=== PATIENT | female | born 1985 | race Caucasian/White ===

== ENCOUNTER → 2023-10-31 08:00 | Outpatient (REF) | payer BC, SELFPAY | LOC: PNTC 08:00 | PROVIDERS: ATTENDING PHYSICIAN Obstetrics & Gynecology | DX: Z36.0 Encounter for antenatal screening for chromosomal anomalies (principal); Z36.82 Encounter for antenatal screening for nuchal translucency | CPT/HCPCS: 76801; 76813 ==

== ENCOUNTER 2024-05-01 11:02 | Observation (INO) | payer BC, SELFPAY ==
[2024-05-01 11:09] VITALS: BP 132/72; BMI 28.4
[2024-05-01 11:26] LABS: Hematocrit 31.1 % (37.0-47.0); Hemoglobin 10.3 g/dL (12.0-16.0); Mean Corp Hgb Conc. 33.1 g/dL (33.0-37.0); Mean Corpuscular Hgb 26.8 pg (27.0-31.0); Mean Platelet Volume 10.3 fL (7.4-10.4); Platelet Count 260 10^3/uL (130-400); Red Blood Cell Count 3.84 10^6/uL (4.20-5.40); Red Cell Dist. Width 14.3 % (11.5-14.5); White Blood Cell Count 8.1 10^3/uL (4.8-10.8)
[2024-05-01 11:36] LABS: ALT (SGPT) 18 U/L (0-35); AST (SGOT) 33 U/L (14-36); Albumin 3.5 g/dl (3.5-5.0); Alkaline Phosphatase 229 U/L (38-126); Blood Urea Nitrogen 8 mg/dl (7-17); Calcium 9.2 mg/dl (8.4-10.2); Carbon Dioxide 19 mmol/L (22-30); Chloride 105 mmol/L (98-107); Estimated Creatinine Clearance > 125 ml/min; Glucose 75 mg/dl (70-99); Potassium 4.1 mmol/L (3.5-5.1); Sodium 135 mmol/L (135-145); Total Bilirubin 0.6 mg/dl (0.2-1.3); Total Protein 6.1 g/dl (6.3-8.2); eGFR > 60.00
[2024-05-01 11:45] LABS: Protein/creatinine Ratio 0.2; Urine Protein 13 mg/dl
== END 2024-05-01 13:00 | disposition home or self-care (01) ==
LOC: LDRP 11:02
PROVIDERS: ADMITTING PHYSICIAN Obstetrics & Gynecology
DX: O13.3 Gestational [pregnancy-induced] hypertension without significant proteinuria, third trimester (principal); Z3A.38 38 weeks gestation of pregnancy; Z88.2 Allergy status to sulfonamides
CPT/HCPCS: 36415; 80053; 82570; 84156; 85027; 86850; 86900; 86901; G0378

== ENCOUNTER 2024-05-01 19:29 | Inpatient (IN) | payer BC, SELFPAY ==
[2024-05-01 19:35] VITALS: BMI 28.4
[2024-05-01 19:39] VITALS: BP 139/70
[2024-05-01] MEDS: CYTOTEC 25 MICROGRAM VAG (20:18)
[2024-05-01] MEDS: LR 1000 IV (21:08)
[2024-05-02] MEDS: CYTOTEC 50 MICROGRAM PO (01:03)
[2024-05-02] MEDS: BRETHINE 250 MCG SC (02:33)
[2024-05-02] MEDS: LR 1000 IV ×2 (04:45→08:57)
[2024-05-02] MEDS: SUBLIMAZE 100 MCG EPIDURAL (04:54)
[2024-05-02] MEDS: FENTANYL/BUPIVACAINE 100 EPIDURAL (04:54)
[2024-05-02] MEDS: PENICILLIN 110 UNITS IV (05:18)
[2024-05-02] MEDS: CYTOTEC PO ×2 (06:51→11:23)
[2024-05-02] MEDS: PITOCIN 30 UNITS/NSS 500 ML IV (07:20)
[2024-05-02] MEDS: PENICILLIN 55 UNITS IV (08:57)
[2024-05-02] MEDS: MOTRIN 600 MG PO (20:07)
[2024-05-03] MEDS: MOTRIN 600 MG PO ×3 (04:47→20:31)
[2024-05-03 04:51] LABS: Hematocrit 27.1 % (37.0-47.0); Hemoglobin 9.1 g/dL (12.0-16.0)
[2024-05-03] MEDS: PRENATAL PLUS 1 TABLET PO (07:44)
[2024-05-03] MEDS: FEOSOL 325 MG PO (14:48)
[2024-05-04] MEDS: MOTRIN 600 MG PO ×2 (04:05→12:16)
[2024-05-04] MEDS: FEOSOL 325 MG PO (08:06)
[2024-05-04] MEDS: PRENATAL PLUS 1 TABLET PO (08:06)
[2024-05-04] MEDS: SENOKOT-S 1 TABLET PO (08:06)
[2024-05-05 15:12] LABS: Syphilis/T. pallidum Ab Reflex Negative (Negative)
== END 2024-05-04 13:15 | disposition home or self-care (01) | DRG 807 ==
LOC: LDRP 19:29
PROVIDERS: Obstetrics & Gynecology; ADMITTING PHYSICIAN Obstetrics & Gynecology
PROC: 3E0P7VZ Introduction of Hormone into Female Reproductive, Via Natural or Artificial Opening (ICD-10-PCS; 2024-05-01)
PROC: 10907ZC Drainage of Amniotic Fluid, Therapeutic from Products of Conception, Via Natural or Artificial Opening (ICD-10-PCS; 2024-05-02)
PROC: 0HQ9XZZ Repair Perineum Skin, External Approach (ICD-10-PCS; 2024-05-02)
PROC: 3E033VJ Introduction of Other Hormone into Peripheral Vein, Percutaneous Approach (ICD-10-PCS; 2024-05-02)
PROC: 6A550ZT Pheresis of Cord Blood Stem Cells, Single (ICD-10-PCS; 2024-05-02)
PROC: 10E0XZZ Delivery of Products of Conception, External Approach (ICD-10-PCS; 2024-05-02)
DX: O13.4 Gestational [pregnancy-induced] hypertension without significant proteinuria, complicating childbirth (principal); Z37.0 Single live birth; Z3A.38 38 weeks gestation of pregnancy; O70.0 First degree perineal laceration during delivery; O99.824 Streptococcus B carrier state complicating childbirth; Z88.2 Allergy status to sulfonamides; O90.81 Anemia of the puerperium; D64.9 Anemia, unspecified
CPT/HCPCS: 88307; 36415; 80053; 82570; 84156; 85014; 85018; 85027; 86780; 86850; 86900; 86901; G0378